=== PATIENT | female | born 1980 | race Caucasian/White ===

== ENCOUNTER 2018-01-08 11:44 | Emergency (ER) | payer OTHER, SELFPAY ==
[2018-01-08 11:45] VITALS: BP 133/85; PULSE 55; RESP 16; TEMP 36.8; O2SAT 100; BMI 18.2
--- NOTE | 2018-01-08 11:58 | RAD_ITS ---
STUDY: X-RAY - RIGHT FOOT CLINICAL: Female, 37 years old. Right foot pain TECHNIQUE: 3 view(s) of the foot. COMPARISON: None. FINDINGS: Normal talus, calcaneus, and tarsal bones. Normal visualized subtalar, talonavicular, calcaneocuboid, tarsal and tarsometatarsal articulations. Normal metatarsi. Normal metatarsophalangeal joint of the great toe. Normal tibial and fibular sesamoid bones. Normal interphalangeal joint of the great toe. Normal phalanges of the great toe. Normal second through fifth metatarsophalangeal joints. Normal interphalangeal joints and phalanges of the lesser toes. The soft tissue structures are unremarkable. RAD/Foot min 3 Views IMPRESSION: Normal x-ray examination of the foot. Electronically Signed: Zac Ngo DO at 12:27 EDT Tel , Service support ,
--- NOTE | 2018-01-08 12:01 | RAD_ITS ---
STUDY: X-RAY - RIGHT CALCANEUS REASON FOR EXAM: Female, 37 years old. Heel pain TECHNIQUE: 2 view(s) of the calcaneus were obtained. COMPARISON: None. FINDINGS: Normal visualized calcaneus. RAD/Calcaneus min 2 Views IMPRESSION: Normal x-ray examination of the calcaneus. Electronically Signed: Zac Ngo DO at 12:27 EDT Tel , Service support ,
--- NOTE | 2018-01-08 12:02 | ED.DCSUM_ITS ---
- ER Visit Summary Date of Service: 01/08/18 Chief Complaint: Right heel pain History of Present Illness: The patient is a 37 F who presents with pain in her right heel that began after a fall last night. Patient states she fell down some steps and injured her right heel. Patient states the pain is localized to the right heel. Patient states the pain is worse with any movement or weightbearing. Patient denies any paresthesias or weakness. Patient denies any head injury or loss of consciousness. Patient denies any other injuries. Physical Examination: Vital signs are stable. Patient is afebrile. Patient is in no acute distress. Musculoskeletal exam reveals tenderness over the right calcaneus. There is no edema or ecchymosis. There is no deformity noted. There is no bony crepitance or step-off. There is no tenderness over the fifth metatarsal. There is no tenderness over the medial or lateral malleoli. There is no fibular tenderness noted. Range of motion was limited in plantar flexion and dorsiflexion secondary to pain. Pedal pulses are equal bilaterally. Sensation was intact to light touch in all digits. Capillary refill was less than 2 seconds in all digits. Test Results: X-ray of the right foot and calcaneus was obtained. There is no acute fracture. Emergency Department Course and Treatment: Patient was given a walking boot. Patient was instructed to ice and elevate the right foot. Patient was instructed to take ibuprofen as needed for pain. Patient was instructed to follow-up with her primary care physician in 5-7 days. Patient understood and was agreeable with the plan. All questions were answered. Disposition: Discharged home Impression: Right foot contusion This note was generated with [employer] dictation software. It may contain incorrect words, spelling, and punctuation that were not noted in review of the chart prior to signing ED Disposition - Plan for ED Patient: Chief Complaint: Lower Extremity Injury Diagnosis: Contusion of right foot, initial encounter Instructions: ED Contusion Foot
[2018-01-08 12:46] VITALS: RESP 16
== END 2018-01-08 12:56 | disposition home or self-care (01) ==
LOC: ED 12:21
PROVIDERS: Emergency Provider Emergency Medicine
DX: S90.31XA Contusion of right foot, initial encounter (principal); W10.9XXA Fall (on) (from) unspecified stairs and steps, initial encounter; Y93.01 Activity, walking, marching and hiking; Y92.89 Other specified places as the place of occurrence of the external cause; Y99.8 Other external cause status
CPT/HCPCS: 73630; 73650; 99283

== ENCOUNTER → 2018-03-28 08:56 | Outpatient (CLI) | payer OTHER, SELFPAY ==
[2018-03-28 10:27] LABS: Hematocrit 40.5 % (37-47); Mean Corp Hgb Conc 32.1 g/gl (32-36); Mean Corpuscular Hgb 29.1 pg (27.0-32.0); Mean Corpuscular Volume 90.8 fL (81-99); Mean Platelet Vol. 12.4 fl (6.2-12.0); Platelet Count 217 K/mm3 (150-450); RBC Distribution Width SD 42.8 fl (35.1-43.9); Red Blood Count 4.46 M/mm3 (4.2-5.4); White Blood Count 4.4 K/mm3 (4.4-11.0)
[2018-03-28 10:33] LABS: Scan Indicated on CBC? Y/N NO
[2018-03-28 10:46] LABS: Vitamin D,25 Hydroxy 29.2 ng/mL (29.95-100.01)
[2018-03-28 10:54] LABS: Anion Gap 8 (5-15); BUN 10 mg/dL (7-18); BUN/Creat Ratio 12.1 RATIO (10-20); Calcium,Total 8.5 mg/dL (8.5-10.1); Chloride 107 mmol/L (98-107); Cholesterol 143 mg/dL (200); Creatinine, Serum 0.82 mg/dL (0.55-1.02); EST Glomerular Filtration Rate 83 mL/min (>60); Est Glom Filt Rate - Afr Amer 101 mL/min (>60); Glucose 87 mg/dL (74-106); High Density Lipoprotein 51 mg/dL; Iron 108 ug/dL (50-170); Potassium 3.6 mmol/L (3.5-5.1); Sodium Level 141 mmol/L (136-145); Thyroid Stim Hormone (TSH) 1.31 uIU/mL (0.358-3.74); Triglycerides 55 mg/dL; Very Low Density Lipoprotein 11 mg/dL (5-40)
== END ==
PROVIDERS: Family Provider Family Medicine; PCP Family Medicine; Visit Provider Family Medicine
DX: D64.9 Anemia, unspecified (principal); F43.22 Adjustment disorder with anxiety; E55.9 Vitamin D deficiency, unspecified; Z13.220 Encounter for screening for lipoid disorders
CPT/HCPCS: 36415; 80048; 80061; 82306; 83540; 84443; 85027

== ENCOUNTER → 2018-08-08 | Outpatient (CLI) | payer OTHER, SELFPAY | END | disposition home or self-care (01) | PROVIDERS: Family Provider Family Medicine; PCP Family Medicine; Visit Provider Nurse Practitioner Adult Health | DX: Z01.419 Encounter for gynecological examination (general) (routine) without abnormal findings (principal); Z20.2 Contact with and (suspected) exposure to infections with a predominantly sexual mode of transmission ==